=== PATIENT | female | born 1995 | race Caucasian/White ===

== ENCOUNTER 2020-07-24 05:21 | Day surgery (SDC) | payer OTHER ==
[2020-07-17 10:23] LABS: HEMATOCRIT 36.8 % (36.0-47.0); HEMOGLOBIN 12.8 g/dL (12.0-15.5); MEAN CORPUSCULAR HEMOGLOBIN 31.5 pg (27.0-33.4); MEAN CORPUSCULAR HGB CONC 34.7 g/dL (32.0-36.0); MEAN CORPUSCULAR VOLUME 91 fl (80-97); PLATELET COUNT 280 10^3/uL (150-450); RED BLOOD COUNT 4.05 10^6/uL (3.72-5.28); RED CELL DISTRIBUTION WIDTH 12.5 % (11.5-14.0); WHITE BLOOD COUNT 9.8 10^3/uL (4.0-10.5)
[~2020-07-24 05:21] MED LIST: CEFAZOLIN 1 GM/D5W RTU 1 GM/50 ML RTUPB IV ONE; CEFAZOLIN 1 GM/D5W RTU 1 GM/50 ML RTUPB IV PRN; LACTATED RINGERS 1000 ML IV PRN; LIDOCAINE 0.5% INJ-PF (5 MG/ML) 50 ML SDV SUBCUT PRN
[2020-07-24] MEDS ORDERED: MORPHINE SULFATE 10 MG/ML INJ ONE (06:46)
[2020-07-24] MEDS ORDERED: DEXAMETHASONE SOD PHOSPHATE INJ 4 MG/1 ML VIAL ONE (06:46)
[2020-07-24] MEDS ORDERED: ONDANSETRON HCL INJ/PF 4 MG/2 ML SDV ONE (06:46)
[2020-07-24] MEDS ORDERED: PROPOFOL INJ 200 MG/20 ML VIAL IV ONE ×2 (06:46→08:13)
[2020-07-24] MEDS ORDERED: MIDAZOLAM 2 MG/2 ML INJ ONE (06:46)
[2020-07-24] MEDS ORDERED: FENTANYL CITRATE INJ/PF 100 MCG/2 ML AMPUL ONE (06:46)
[2020-07-24] MEDS ORDERED: MICROFIBRILLAR COLLAGEN 1 GM PACK ONE (07:03)
[2020-07-24] MEDS ORDERED: METHYLENE BLUE 50 MG/10 ML AMPULE ONE (07:03)
[2020-07-24] MEDS ORDERED: LIDOCAINE 1%/EPINEPHRINE INJ 20 ML VIAL ONE (07:04)
[2020-07-24] MEDS ORDERED: FENTANYL CITRATE INJ/PF 100 MCG/2 ML AMPUL IV PRN ×3 (07:56)
[2020-07-24] MEDS ORDERED: MORPHINE SULFATE 10 MG/ML INJ IV PRN (07:56)
[2020-07-24] MEDS ORDERED: MEPERIDINE HCL/PF INJ 25 MG/1 ML DISP.SYRIN IV PRN (07:56)
[2020-07-24] MEDS ORDERED: DIPHENHYDRAMINE HCL 50 MG/ML VIAL IV PRN (07:56)
--- NOTE | 2020-07-24 08:12 | Operative Report ---
Operative Report DATE OF SURGERY: 07/24/20 PREOPERATIVE DIAGNOSIS: Fibroadenoma right breast POSTOPERATIVE DIAGNOSIS: Same OPERATION: 1. Focused ultrasound of the right breast. 2. Excisional biopsy of the right breast fibroadenoma SURGEON: MICHEL DWYER 1ST [employer] TEAM LEADER: KEVAN SOOD ANESTHESIA: GA TISSUE REMOVED OR ALTERED: Right breast mass COMPLICATIONS: None ESTIMATED BLOOD LOSS: Scant INTRAOPERATIVE FINDINGS: See below PROCEDURE: The patient was seen in the preop holding area the right breast was marked. She was then taken to the main operating room where general anesthesia was induced via LMA. The right arm was abducted, the right breast prepped and draped in sterile fashion. Surgical plan and surgical timeout were conducted. Focused ultrasound of the right breast performed. Fibroadenoma inferior outer quadrant identified. Markings made on the skin for open excisional biopsy. Skin was anesthetized 1% plain lidocaine. 2-1/2 cm incision was made with a knife, subcutaneous tissue divided, and the multilobulated fibroadenoma was exci sed using electrocautery. It was submitted to pathology as right breast mass. Wound irrigated, checked for bleeding there was none. Sponge needle counts are correct. Wound closed in layers with 3-0 Vicryl, skin glue. Patient tolerated the procedure well, extubated, taken to recovery room in stable condition. The physician assistant coach, Ms. Chandra, provided assistance during this case by: Assisting with retracting tissue, instillation of local anesthesia and closure of skin incisions.
[2020-07-24] MEDS ORDERED: OXYCODONE-ACETAMINOPHEN 5-325 MG TABLET PO PRN (08:13)
--- NOTE | 2020-07-24 08:13 | Discharge Summary ---
Discharge Summary (SDC) - Discharge Final Diagnosis: Right breast mass Date of Surgery: 07/24/20 Discharge Date: 07/24/20 Condition: Good Treatment or Instructions: WOUND CARE: You may shower in 24 hours. Do not scrub incision. Pat dry. Some patients feel more comfortable with gauze and tape covering the wound. Wear supportive bra. PAIN MANAGEMENT: You may take Toradol 10mg one pill by mouth every six hours as needed for pain. FOLLOW UP: You may follow up at [facility] in 10 days. Call clinic sooner with questions/concerns. Prescriptions: Ketorolac Tromethamine [Toradol 10 mg Tablet] 10 mg PO Q6HP PRN #20 tablet PRN Reason: Discharge Diet: As Tolerated Discharge Activity: Activity As Tolerated, Balance Activity w/Rest, No Lifting/Push/Pulling Report the Following to Your Physician Immediately: Increase in Pain, Fever over 101 Degrees, Unusual Bleeding, Redness, Swelling, Warmth, Increased Soreness, Drainage-Green, Drainage-Foul Smelling
[2020-07-24 10:14] VITALS: BP 94/60
== END 2020-07-24 09:45 | disposition home or self-care (01) ==
LOC: OROUT 05:21
PROVIDERS: ATTEND Surgery
DX: D24.1 Benign neoplasm of right breast (principal); F17.290 Nicotine dependence, other tobacco product, uncomplicated; Z01.812 Encounter for preprocedural laboratory examination; Z20.828 Contact with and (suspected) exposure to other viral communicable diseases
CPT/HCPCS: 19120; 36415; 85027; 87635; 81025; J2250; J0690; J1100; J3010; J3490; J2270; J2405; J2704; C9803; Q9968